=== PATIENT | female | born 1995 | race Two or more races ===

== ENCOUNTER 2020-09-04 22:20 | Inpatient (IN) | payer MEDICAID ==
[~2020-09-04] VITALS: Ht 165.1 cm; Wt 73.0 kg
[2020-09-04] MEDS ORDERED: LORazepam 2MG/ML-1ML VIAL ONE (23:51)
[2020-09-05] MEDS ORDERED: LORazepam 2MG/ML-1ML VIAL IV ONE
[2020-09-05 00:05] LABS: Basophils # (auto) 0 10 ^3/uL (0-0.2); Basophils % (auto) 0.2 % (0.0-2.0); Eosinophils # (auto) 0.6 10 ^3/uL (0-0.8); Hemoglobin 15.2 g/dL (12.2-16.2); Lymphocytes # (auto) 0.4 10 ^3/uL (0.4-5.4); Monocytes # (auto) 0.3 10 ^3/uL (0-1.3)
[2020-09-05 00:07] LABS: Eosinophils % (auto) 4.9 % (0.0-7.0); Hematocrit 42.9 % (36.0-46.0); Lymphocytes % (auto) 3.5 % (10.0-50.0); Mean Corpuscular Hemoglobin 36.1 pg (28.0-32.0); Mean Corpuscular Hgb Conc. 35.5 g/dL (32.0-36.0); Mean Corpuscular Volume 101.8 fL (80.0-100.0); Monocytes % (auto) 2.6 % (0.0-12.0); Neutrophils # (auto) 10.8 10 ^3/uL (1.6-8.6); Neutrophils % (auto) 88.8 % (37.0-80.0); Red Blood Cells 4.22 10^6/uL (4.0-5.20); Red Cell Distribution Width 13.5 % (11.8-14.3); White Blood Cell 12.2 10^3/uL (4.4-10.8)
[2020-09-05 00:08] LABS: Amphetamine Screen, Urine NEGATIVE (NEGATIVE); Barbiturate Scree,Urine NEGATIVE (NEGATIVE); Benzodiazephine Screen, Urine NEGATIVE (NEGATIVE); Cannabinoid Screen, Urine NEGATIVE (NEGATIVE); Cocaine Screen, Urine NEGATIVE (NEGATIVE); Opiate Scree,Urine NEGATIVE (NEGATIVE); Phencyclidine Screen, Urine NEGATIVE (NEGATIVE)
[2020-09-05 00:12] LABS: Albumin 4.3 g/dL (3.4-5.0); Anion Gap 9 (5-15); Blood Urea Nitrogen 11 mg/dL (7-18); Calcium 9.4 mg/dL (8.5-10.1); Carbon Dioxide 27 mmol/L (21-32); Chloride 97 mmol/L (98-107); Glucose 112 mg/dL (74-106); Magnesium 1.5 mg/dL (1.6-2.6); Potassium 4.1 mmol/L (3.5-5.1); Sodium 133 mmol/L (136-145)
[2020-09-05 00:13] LABS: Urine Bacteria MANY /hpf (None Seen); Urine Blood Negative /uL (Negative); Urine Hyaline Cast FEW /lpf (0 - 2); Urine Mucus FEW (None Seen); Urine Specific Gravity 1.009 (1.001-1.035); Urine WBC 3 /hpf (0 - 5)
[2020-09-05 00:14] LABS: Alcohol, Urine < 3.0 mg/dL (0-10)
[2020-09-05 00:17] LABS: Alanine Aminotransferase 88 U/L (13-56); Alkaline Phosphatase 73 U/L (45-117); Aspartate Aminotransferase 113 U/L (15-37); BUN/Creatinine Ratio 12.1; Bilirubin, Total 2.1 mg/dL (0.2-1.0); Blood Alcohol < 3.0 mg/dL (0-5); GFR African American 97 mL/min; GFR Non-African American 80 mL/min; Total Protein 8.1 g/dL (6.4-8.2)
[2020-09-05] MEDS ORDERED: ONDANSETRON HCL 4 MG/2 ML VIAL IV ONE (01:15)
[2020-09-05] MEDS ORDERED: MAGNESIUM SULFATE 1GM/100ML 100 ML IV ONE ×2 (03:43→03:45)
[2020-09-05] MEDS ORDERED: levETIRAcetam 500 MG/5ML INJ IV ONE (04:22)
[2020-09-05] MEDS ORDERED: TEMAZEPAM 15 MG CAP PO PRN (06:15)
[2020-09-05] MEDS ORDERED: NITROGLYCERIN 0.4 MG SL TAB SL PRN (06:15)
[2020-09-05] MEDS ORDERED: SODIUM CHLORIDE 0.9% 1,000 ML IV SCH (06:15)
[2020-09-05] MEDS ORDERED: ONDANSETRON HCL 4 MG/2 ML VIAL IV PRN (06:15)
[2020-09-05] MEDS ORDERED: MORPHINE SULFATE INJECTION 2 MG/ML SYRG IV PRN (06:15)
[2020-09-05] MEDS ORDERED: ACETAMINOPHEN 325 MG TAB PO PRN (06:15)
[2020-09-05] MEDS ORDERED: diphenhdrAMINE HCL 25 MG CAP PO PRN (06:15)
[2020-09-05 07:22] LABS: Basophils # (auto) 0 10 ^3/uL (0-0.2); Basophils % (auto) 0.2 % (0.0-2.0); Eosinophils # (auto) 0.8 10 ^3/uL (0-0.8); Hematocrit 39.6 % (36.0-46.0); Lymphocytes # (auto) 0.5 10 ^3/uL (0.4-5.4); Lymphocytes % (auto) 4.4 % (10.0-50.0); Mean Corpuscular Hemoglobin 35.6 pg (28.0-32.0); Mean Corpuscular Hgb Conc. 35.3 g/dL (32.0-36.0); Mean Corpuscular Volume 100.8 fL (80.0-100.0); Monocytes # (auto) 0.3 10 ^3/uL (0-1.3); Monocytes % (auto) 3.1 % (0.0-12.0); Neutrophils # (auto) 9.2 10 ^3/uL (1.6-8.6); Neutrophils % (auto) 85.3 % (37.0-80.0); Nucleated Red Blood Cells % 0.1 %; Red Blood Cells 3.92 10^6/uL (4.0-5.20); Red Cell Distribution Width 13.4 % (11.8-14.3); White Blood Cell 10.8 10^3/uL (4.4-10.8)
[2020-09-05 07:50] LABS: Albumin 3.6 g/dL (3.4-5.0); Calcium 8.2 mg/dL (8.5-10.1); Magnesium 1.8 mg/dL (1.6-2.6); Potassium 3.3 mmol/L (3.5-5.1)
[2020-09-05 07:52] LABS: BUN/Creatinine Ratio 16.2
[2020-09-05 07:55] LABS: Bilirubin, Total 1.8 mg/dL (0.2-1.0); Total Protein 6.9 g/dL (6.4-8.2)
[2020-09-05] MEDS: cefTRIAXone 1GM/50ML D5W 50 ML IV SCH (09:19)
[2020-09-05] MEDS: MULTIPLE VITAMIN TAB PO SCH (09:19)
[2020-09-05] MEDS: HYDROcodone-ACET 5/325MG TAB PO PRN ×2 (09:20→20:52)
[2020-09-05] MEDS: ENOXAPARIN SOD 40 MG/0.4 ML SYRINGE SC SCH (09:20)
[2020-09-05] MEDS: predniSONE 5 MG TAB PO SCH (09:20)
[2020-09-05] MEDS: FAMOTIDINE 20 MG TAB PO SCH ×2 (09:20→21:34)
[2020-09-05] MEDS ORDERED: ASCORBIC ACID 500 MG TAB PO SCH (10:00)
[2020-09-05] MEDS ORDERED: ZINC SULFATE 220mg CAP or TAB PO SCH (10:00)
[2020-09-05] MEDS ORDERED: FAMOTIDINE (10MG/ML) 2ML VL IV SCH (10:00)
[2020-09-05 11:13] VITALS: BP 121/83
[2020-09-05] MEDS ORDERED: SULF400T11 PO (11:33)
[2020-09-05] MEDS ORDERED: METH4PAK PO (11:33)
[2020-09-05 12:30] VITALS: BP 116/78
[2020-09-05] MEDS ORDERED: LORazepam 2MG/ML-1ML VIAL IV PRN ×2 (12:45→20:00)
[2020-09-05 17:00] VITALS: BP 96/55
[2020-09-05] MEDS ORDERED: chlordiazePOXIDE HCL 25 MG CAP PO PRN (20:00)
[2020-09-05 21:56] VITALS: BP 116/84
[2020-09-06 05:00] VITALS: BP 114/78
[2020-09-06] MEDS: HYDROcodone-ACET 5/325MG TAB PO PRN (05:54)
[2020-09-06 06:41] LABS: Basophils # (auto) 0 10 ^3/uL (0-0.2); Basophils % (auto) 0.2 % (0.0-2.0); Eosinophils # (auto) 0.7 10 ^3/uL (0-0.8); Monocytes # (auto) 0.3 10 ^3/uL (0-1.3); Nucleated Red Blood Cells % 0.2 %; Red Cell Distribution Width 13.5 % (11.8-14.3)
[2020-09-06 06:43] LABS: Hematocrit 41.9 % (36.0-46.0); Lymphocytes # (auto) 1.9 10 ^3/uL (0.4-5.4); Lymphocytes % (auto) 20.8 % (10.0-50.0); Mean Corpuscular Hemoglobin 36.6 pg (28.0-32.0); Mean Corpuscular Hgb Conc. 35.9 g/dL (32.0-36.0); Mean Corpuscular Volume 101.8 fL (80.0-100.0); Monocytes % (auto) 3.7 % (0.0-12.0); Neutrophils # (auto) 6.3 10 ^3/uL (1.6-8.6); Neutrophils % (auto) 67.3 % (37.0-80.0); Red Blood Cells 4.11 10^6/uL (4.0-5.20); White Blood Cell 9.4 10^3/uL (4.4-10.8)
[2020-09-06 07:02] LABS: Potassium 3.5 mmol/L (3.5-5.1)
[2020-09-06 07:17] LABS: Albumin 3.8 g/dL (3.4-5.0); BUN/Creatinine Ratio 15.3; Bilirubin, Total 1.4 mg/dL (0.2-1.0); Calcium 8.8 mg/dL (8.5-10.1); Total Protein 7.3 g/dL (6.4-8.2)
[2020-09-06 09:00] VITALS: BP 117/75
[2020-09-06] MEDS: cefTRIAXone 1GM/50ML D5W 50 ML IV SCH (09:00)
[2020-09-06] MEDS: FAMOTIDINE 20 MG TAB PO SCH ×2 (09:51→22:30)
[2020-09-06] MEDS: ENOXAPARIN SOD 40 MG/0.4 ML SYRINGE SC SCH (09:51)
[2020-09-06] MEDS: predniSONE 5 MG TAB PO SCH (09:51)
[2020-09-06] MEDS: MULTIPLE VITAMIN TAB PO SCH (09:51)
[2020-09-06] MEDS: FOLIC ACID 1 MG, MULTIPLE VITAMIN 10 ML, MAGNESIUM SULF SDV 50% 8 MEQ, THIAMINE INJ 100... INJ SCH ×5 (12:00)
[2020-09-06 12:43] VITALS: BP 117/79
[2020-09-06 17:00] VITALS: BP 113/69
[2020-09-06] MEDS: LIDOCAINE VISCOUS 2% 15ML UD MT PRN ×2 (18:46→23:00)
[2020-09-06 22:00] VITALS: BP 120/80
[2020-09-07 05:00] VITALS: BP 126/87
[2020-09-07] MEDS: LIDOCAINE VISCOUS 2% 15ML UD MT PRN (06:33)
[2020-09-07] MEDS: predniSONE 5 MG TAB PO SCH (08:26)
[2020-09-07] MEDS: cefTRIAXone 1GM/50ML D5W 50 ML IV SCH (08:26)
[2020-09-07] MEDS: FAMOTIDINE 20 MG TAB PO SCH (08:27)
[2020-09-07] MEDS: ENOXAPARIN SOD 40 MG/0.4 ML SYRINGE SC SCH (08:27)
[2020-09-07] MEDS: MULTIPLE VITAMIN TAB PO SCH (08:27)
[2020-09-07 08:57] VITALS: BP 133/86
[2020-09-07] MEDS: FOLIC ACID 1 MG, MULTIPLE VITAMIN 10 ML, MAGNESIUM SULF SDV 50% 8 MEQ, THIAMINE INJ 100... INJ SCH ×5 (12:00)
[2020-09-07 13:18] VITALS: BP 127/82
[2020-09-07] MEDS ORDERED: KEP500T PO (14:25)
[2020-09-07 14:35] VITALS: BP 111/60
[2020-09-07 17:04] VITALS: BP 114/88
== END 2020-09-07 18:00 | disposition home or self-care (01) | DRG 204 ==
LOC: ER 22:20 → TELE 09-05 06:03 → TELE-EAST 09-05 10:50
PROVIDERS: ADMIT Nurse Practitioner Family; ATTEND Hospitalist
DX: R55 Syncope and collapse (principal); E83.42 Hypomagnesemia; S70.11XA Contusion of right thigh, initial encounter; D72.829 Elevated white blood cell count, unspecified; F10.239 Alcohol dependence with withdrawal, unspecified; F17.200 Nicotine dependence, unspecified, uncomplicated; G40.909 Epilepsy, unspecified, not intractable, without status epilepticus; T63.441A Toxic effect of venom of bees, accidental (unintentional), initial encounter; Z82.3 Family history of stroke; Z82.49 Family history of ischemic heart disease and other diseases of the circulatory system; Z83.3 Family history of diabetes mellitus; R79.89 Other specified abnormal findings of blood chemistry; Z20.822 Contact with and (suspected) exposure to COVID-19; X58.XXXA Exposure to other specified factors, initial encounter; Y90.0 Blood alcohol level of less than 20 mg/100 ml
CPT/HCPCS: 36415; 70450; 70551; 80053; 80307; 80320; 81001; 81025; 83735; 85025; 85049; 87426; 95819; 96365; 96366; 96367; 96368; 96375; G0378; J0696; J2405; J7060